=== PATIENT | female | born 1950 | race Caucasian/White ===

== ENCOUNTER 2024-10-26 05:54 | Outpatient (RCR) | payer MEDICARE, OTHER, SELFPAY | END 2024-10-26 23:59 | disposition home or self-care (01) | LOC: RST 05:54 | PROVIDERS: ATTENDING PHYSICIAN Otolaryngology; FAMILY PHYSICIAN Family Medicine | DX: R49.0 Dysphonia (principal); K21.9 Gastro-esophageal reflux disease without esophagitis; J31.2 Chronic pharyngitis; Z98.890 Other specified postprocedural states | CPT/HCPCS: 92507; 92524 ==

== ENCOUNTER 2024-11-25 06:56 | Outpatient (RCR) | payer MEDICARE, OTHER, SELFPAY | END 2024-11-25 23:59 | disposition home or self-care (01) | LOC: RST 06:56 | PROVIDERS: ATTENDING PHYSICIAN Otolaryngology; FAMILY PHYSICIAN Family Medicine | DX: R49.0 Dysphonia (principal); K21.9 Gastro-esophageal reflux disease without esophagitis; J31.2 Chronic pharyngitis; Z98.890 Other specified postprocedural states | CPT/HCPCS: 92507 ==

== ENCOUNTER 2025-01-12 07:40 | Outpatient (RCR) | payer MEDICARE, OTHER, SELFPAY | END 2025-01-12 23:59 | disposition home or self-care (01) | LOC: RST 07:40 | PROVIDERS: ATTENDING PHYSICIAN Otolaryngology; FAMILY PHYSICIAN Family Medicine | DX: R49.0 Dysphonia (principal); K21.9 Gastro-esophageal reflux disease without esophagitis; J31.2 Chronic pharyngitis; Z98.890 Other specified postprocedural states | CPT/HCPCS: 92507 ==

== ENCOUNTER 2025-02-11 10:58 | Outpatient (RCR) | payer MEDICARE, OTHER, SELFPAY | END 2025-02-12 14:18 | disposition home or self-care (01) | LOC: RST 10:58 | PROVIDERS: ATTENDING PHYSICIAN Otolaryngology; FAMILY PHYSICIAN Family Medicine | DX: R49.0 Dysphonia (principal); K21.9 Gastro-esophageal reflux disease without esophagitis; J31.2 Chronic pharyngitis; Z98.890 Other specified postprocedural states | CPT/HCPCS: 92507 ==

== ENCOUNTER → 2025-05-07 13:47 | Outpatient (REF) | payer MEDICARE, OTHER, SELFPAY | LOC: HWRAD 13:47 | PROVIDERS: ATTENDING PHYSICIAN Physician Assistant; FAMILY PHYSICIAN Family Medicine | DX: J34.89 Other specified disorders of nose and nasal sinuses (principal) | CPT/HCPCS: 70486 ==